=== PATIENT | female | born 1990 | race Caucasian/White ===

== ENCOUNTER 2017-03-28 08:24 | Inpatient (IN) | payer OTHER ==
--- OUTSIDE RECORDS SUMMARY | 2017-03-28 08:29 | XMS REPORT | Continuity of Care Document ---
:1990 Author Organization [facility] ([facility]) Address [address] [place] [address] Phone [phone] Care Team Providers Name Role Phone Unavailable Primary Care Provider Unavailable Source Comments This disclosure is being made pursuant to the Care Everywhere program, applicable federal and state laws, and may not contain all informaitonavailable regarding this patient.[facility] ([facility]) Active Allergies and Adverse Reactions Not on File Current Medications Not on file Active Problems Not on file Social History Tobacco Use Types Packs/Day Years Used Date Never Assessed Plan of Care Health Maintenance Due Date Last Done Comments Hepatitis B Vaccine (1 of 3 - Primary Series) 1992 HPV Vaccine (1 of 3 - Female/Unknown 3 Dose Series) 2003 Tdap Vaccine 2003 Cervical Cancer Screening 2010 Lipid Disorder Screening 2010 MMR Vaccine 2010 Td Vaccine 2010 Varicella Vaccine (1 of 2 - Adult - No Evidence of 2010 Immunity) Influenza Vaccine: Seasonal (#1) 06/12/2016 Results from Last 3 Months Not on file
[2017-03-28] MEDS ORDERED: OXYTOCIN/DEXTROSE 5%-WATER 30 UNITS/500 ML BAG IV ONE (09:54)
[2017-03-28] MEDS ORDERED: PENICILLIN G POTASSIUM 5 MILLIONUNT in DEXTROSE 5 % IN WATER 100 ML IV ONE ×2 (09:54)
[2017-03-28] MEDS ORDERED: LIDOCAINE HCL 50 ML VIAL PERI PRN (09:54)
[2017-03-28] MEDS: DEXTROSE 5%-LACTATED RINGERS 1,000 ML IV PRN ×2 (10:30→20:06)
[2017-03-28 11:15] LABS: Cocaine Ur Negative (NEGATIVE); Urine Barbiturate Negative (NEGATIVE); Urine Benzodiazepines Negative (NEGATIVE); Urine Opiates Negative (NEGATIVE); Urine PCP Negative (NEGATIVE); Urine THC Negative (NEGATIVE)
[2017-03-28] MEDS: PENICILLIN G POTASSIUM 2.5 MILLIONUNT in DEXTROSE 5 % IN WATER 100 ML IV SCH ×6 (14:46→22:15)
[2017-03-28] MEDS ORDERED: BUPIVACAINE HCL/0.9 % NACL/PF 250 ML EP PRN (18:48)
--- NOTE | 2017-03-28 18:58 | OR ---
Anesthesia Pre Procedure Eval Date of Service: 03/28/17 Pre Procedure Evaluation: Last Vital Signs Temp 36.6 C 10/12/15 15:10 Pulse Resp BP 105/50 10/12/15 17:15 Pulse Ox Anesthesia Pre Procedure Evaluation Heart Rate:80 Blood Pressure:128/66 Termperature:37.1 Respiratory Rate:22 SaO2:95 DATE: 03/28/2017 TIME: 1854 INDICATIONS: Active labor, labor pain PAST MEDICAL HISTORY: Primipara patient in active labor being induced on Pitocin , requesting labor analgesia. EXAM: Heart regular; lungs clear ASSESSMENT OF MEDICAL STATUS: Appropriate candidate for labor analgesia PLANNED PROCEDURE: Combination spinal Epidural for labor analgesia Home Medications: HOME MEDICATIONS Vit#96/Ferrous Fum/FA [ S] 1 tab PO DAILY 03/28/17 [Last Taken 03/28/17 07:00]
[2017-03-28] MEDS ORDERED: fentaNYL CITRATE/PF 50 MCG/ML AMPUL IT SCH (19:00)
--- NOTE | 2017-03-28 19:28 | OR ---
Anesthesia Procedure Note - Anesthesia Procedure Note Date of Service: 03/28/17 Narrative: Vital Signs - Last Taken Temp 36.6 C 10/12/15 15:10 Pulse Resp BP 105/50 10/12/15 17:15 Pulse Ox 03/28/17 19:45 Please see previously dictated procedure note for epidural insertion. ANESTHESIA PROCEDURE NOTE Date of Procedure: 03/28/2017 Time of procedure: 1900. Performed by: EARNEST Pleitez CRNA, MSN Software Development Manager: Kandis Mcmahon RN. Preprocedure diagnosis: Active labor, labor pain. Post procedure diagnosis: Same. Procedure: Labor Epidural Placement L3 4. Indications: Labor pain. Findings: See below. Details of the procedure: The patient was placed on the side of the bed in sitting position. The patient was prepped with DuraPrep and draped in a sterile fashion. Lidocaine 1% was infiltrated to the skin and subcutaneous tissues at the level of the L3 4 interspace. The epidural space was identified using a 18-gauge Tuohy needle with [id number] technique. Fentanyl 20 g was given intrathecally the intrathecal needle was then removed and the epidural catheter was threaded approximately 4 cm, the epidural needle was then removed, and after careful aspiration blood returned easily through the epidural catheter. The epidural catheter was manipulated, retracting 1 cm at a time 21 mL of 1.5% lidocaine with 1-200,000 epi was injected without change in maternal heart rate or sensorium however blood list L easily aspirated from the epidural catheter. Since he was unable to interrupt the communication of the epidural injection from the apparent venous access, the epidural catheter was removed and a Band-Aid was applied. A second epidural injection current temp was then placed, see accompanying note. The fentanyl mentioned in the other note was actually a reference to the fentanyl provided during this initial attempt received good relief. EBL: Minimal. Fluids: N/A. Specimen: N/A. Post procedure condition: The patient tolerated the procedure well with. Relief. No complications were noted. Thank you for this consultation. Juan Valentino CRNA, EARNEST, MSN 03/29/17 09:31
--- NOTE | 2017-03-28 19:43 | OR ---
Anesthesia Procedure Note - Anesthesia Procedure Note Date of Service: 03/28/17 Narrative: Vital Signs - Last Taken Temp 36.6 C 10/12/15 15:10 Pulse Resp BP 105/50 10/12/15 17:15 Pulse Ox 03/28/17 19:40 ANESTHESIA PROCEDURE NOTE Date of Procedure: 03/28/2017 Time of procedure: 1900. Performed by: EARNEST Pleitez CRNA, MSN Beauty Sales Advisor: Kandis Mcmahon RN. Preprocedure diagnosis: Active labor, labor pain. Post procedure diagnosis: Same. Procedure: Labor Epidural Placement L3 4. Indications: Labor pain. Findings: See below. Details of the procedure: The patient was placed on the side of the bed in sitting position. The patient was prepped with DuraPrep and draped in a sterile fashion. Lidocaine 1% was infiltrated to the skin and subcutaneous tissues at the level of the L3 4 interspace. The epidural space was identified using a 18-gauge Tuohy needle with [id number] technique. Fentanyl 20 g was given intrathecally the intrathecal needle was then removed and the epidural catheter was threaded approximately 4 cm, the epidural needle was then removed, and after careful aspiration 3 mL of 1.5% lidocaine with 1-200,000 epinephrine was injected without change in maternal heart rate or sensorium. The catheter was then taped in place. EBL: Minimal. Fluids: N/A. Specimen: N/A. Post procedure condition: The patient tolerated the procedure well with. Good Relief. No complications were noted. Thank you for this consultation. Juan Valentino CRNA, CAT SCAN TECHNOLOGIST, MSN
[2017-03-29] MEDS: DEXTROSE 5%-LACTATED RINGERS 1,000 ML IV PRN (00:33)
[2017-03-29] MEDS: PENICILLIN G POTASSIUM 2.5 MILLIONUNT in DEXTROSE 5 % IN WATER 100 ML IV SCH ×2 (02:03)
[2017-03-29] MEDS ORDERED: oxyCODONE HCL/ACETAMINOPHEN 1 TAB TABLET PO PRN (05:37)
[2017-03-29] MEDS ORDERED: BISACODYL 10 MG SUPP.RECT RC PRN (05:37)
[2017-03-29] MEDS ORDERED: HYDROCORTISONE 30 APPL TUBE TP PRN (05:37)
[2017-03-29] MEDS ORDERED: BENZOCAINE/MENTHOL 81 SPRAY CAN TP PRN (05:37)
[2017-03-29] MEDS ORDERED: SENNOSIDES 8.6 MG TABLET PO PRN (05:37)
[2017-03-29] MEDS ORDERED: GLYCERIN/WITCH HAZEL LEAF 40 APPL BOX TP PRN (05:37)
[2017-03-29] MEDS ORDERED: OXYTOCIN/DEXTROSE 5%-WATER 30 UNITS/500 ML BAG IV ONE (05:37)
--- NOTE | 2017-03-29 05:42 | OR ---
Operative Report - Dictated Report Narrative: Spontaneous vaginal delivery of viable female at 0452 on 03/29/2017 with Apgars 9 and 9, weighing 3163 g in KRYSTLE position. Nuchal cord 1 reduced on perineum. Cord clamping delayed approximately 1 minute Placenta delivered complete, intact, with three vessel cord Estimated blood loss: less than 50 ml Lacerations: None
[2017-03-29] MEDS: oxyCODONE HCL/ACETAMINOPHEN 1 TAB TABLET PO PRN ×5 (06:06→23:01)
[2017-03-29] MEDS: IBUPROFEN 800 MG TABLET PO PRN ×3 (06:07→19:53)
[2017-03-29] MEDS: DOCUSATE SODIUM 100 MG CAPSULE PO SCH ×3 (08:38→23:02)
[2017-03-30] MEDS: oxyCODONE HCL/ACETAMINOPHEN 1 TAB TABLET PO PRN ×3 (04:03→18:58)
[2017-03-30] MEDS: IBUPROFEN 800 MG TABLET PO PRN ×2 (04:04→10:33)
--- NOTE | 2017-03-30 08:42 | PN ---
Subjective - Date and Time Seen Date: 03/30/17 Time: 08:42 Objective - Vitals Vitals: Last Vital Signs Temp 36.8 C 03/30/17 07:46 Pulse 78 03/30/17 07:46 Resp 16 03/30/17 07:46 BP 118/67 03/30/17 07:46 Pulse Ox 98 03/30/17 07:46 Patient denies complaints. Lochia wnl Abdomen - soft, nontender Uterus - firm, at umbilicus - 1 No calf tenderness Impression: day #1 - s/p spontaneous vaginal delivery. Plan: Continue routine care Cauti Physician Documentation - Urinary Catheter Management Urethral (Rachel) Date of Insertion: 03/28/17 Time of Insertion: 20:30 Date of Removal: 03/29/17 Time of Removal: 04:37
[2017-03-30] MEDS: DOCUSATE SODIUM 100 MG CAPSULE PO SCH ×2 (10:33→21:44)
--- NOTE | 2017-03-31 07:45 | PN ---
Subjective - Date and Time Seen Date: 03/31/17 Time: 07:44 Objective - Vitals Vitals: Last Vital Signs Temp 37.0 C 03/30/17 23:41 Pulse 69 03/30/17 23:41 Resp 17 03/30/17 23:41 BP 140/77 03/30/17 23:41 Pulse Ox 98 03/30/17 23:41 Patient denies complaints. Lochia wnl Abdomen - soft, nontender Uterus - firm, at umbilicus - 2 No calf tenderness Impression: day #2 - s/p spontaneous vaginal delivery. Tobacco abuse Plan: Routine discharge instructions. Counseled again about stop smoking. Cauti Physician Documentation - Urinary Catheter Management Urethral (Rachel) Date of Insertion: 03/28/17 Time of Insertion: 20:30 Date of Removal: 03/29/17 Time of Removal: 04:37
[2017-03-31 08:11] VITALS: BP 118/59
[2017-03-31] MEDS ORDERED: PRENATAL VIT#96/FERROUS FUM/FA 1 TAB TABLET PO SCH (09:00)
[2017-03-31] MEDS: DOCUSATE SODIUM 100 MG CAPSULE PO SCH (09:33)
== END 2017-03-31 13:00 | disposition home or self-care (01) | DRG 775 ==
LOC: OB 08:24 → MS 03-31 03:50
PROVIDERS: ADMIT Obstetrics & Gynecology; ATTEND Obstetrics & Gynecology
PROC: 10E0XZZ Delivery of Products of Conception, External Approach (ICD-10-PCS; principal; 2017-03-29)
PROC: 3E033VJ Introduction of Other Hormone into Peripheral Vein, Percutaneous Approach (ICD-10-PCS; 2017-03-29)
PROC: 4A1HXCZ Monitoring of Products of Conception, Cardiac Rate, External Approach (ICD-10-PCS; 2017-03-29)
PROC: 3E0S3CZ (ICD-10-PCS; 2017-03-29)
DX: O76 Abnormality in fetal heart rate and rhythm complicating labor and delivery (principal); O99.324 Drug use complicating childbirth; O99.824 Streptococcus B carrier state complicating childbirth; O69.81X0 Labor and delivery complicated by cord around neck, without compression, not applicable or unspecified; O99.334 Smoking (tobacco) complicating childbirth; F17.210 Nicotine dependence, cigarettes, uncomplicated; F12.10 Cannabis abuse, uncomplicated; Z3A.40 40 weeks gestation of pregnancy; Z37.0 Single live birth